=== PATIENT | female | born 1965 | race African-American/Black ===

== ENCOUNTER 2019-11-30 23:55 | Inpatient (IN) | payer MEDICAID, OTHER ==
[~2019-11-30] VITALS: Ht 162.6 cm; Wt 84.3 kg
[2019-12-01 00:49] LABS: Basophils # (auto) 0.1 10 ^3/uL (0-0.2); Basophils % (auto) 1.2 % (0.0-2.0); Eosinophils # (auto) 0.2 10 ^3/uL (0-0.8); Eosinophils % (auto) 3.5 % (0.0-7.0); Hematocrit 39.9 % (36.0-46.0); Hemoglobin 13.5 g/dL (12.2-16.2); Lymphocytes # (auto) 2.2 10 ^3/uL (0.4-5.4); Lymphocytes % (auto) 45.1 % (10.0-50.0); Mean Corpuscular Hemoglobin 30.1 pg (28.0-32.0); Mean Corpuscular Hgb Conc. 33.9 g/dL (32.0-36.0); Mean Corpuscular Volume 88.8 fL (80.0-100.0); Monocytes # (auto) 0.5 10 ^3/uL (0-1.3); Monocytes % (auto) 9.6 % (0.0-12.0); Neutrophils % (auto) 40.6 % (37.0-80.0); Nucleated Red Blood Cells % 0.3 %; Platelet Count (auto) 224 10^3/uL (140-450); Red Blood Cells 4.49 10^6/uL (4.0-5.20); Red Cell Distribution Width 13.2 % (11.8-14.3)
[2019-12-01 01:06] LABS: Albumin 3.7 g/dL (3.4-5.0); BUN/Creatinine Ratio 16.7; Calcium 8.2 mg/dL (8.5-10.1); Potassium 3.5 mmol/L (3.5-5.1)
[2019-12-01 01:11] LABS: Bilirubin, Total 0.2 mg/dL (0.2-1.0); Total Protein 7.8 g/dL (6.4-8.2)
[2019-12-01 01:14] LABS: Partial Thromboplastin Time 26.4 sec (23.0-31.2)
[2019-12-01 09:06] LABS: Urine Bacteria FEW /hpf (None Seen); Urine Blood Negative /uL (Negative); Urine Mucus FEW (None Seen); Urine Specific Gravity 1.013 (1.001-1.035); Urine WBC 2 /hpf (0 - 5)
[2019-12-01] MEDS ORDERED: ONDANSETRON HCL 4 MG/2 ML VIAL IV PRN (11:00)
[2019-12-01] MEDS ORDERED: NITROGLYCERIN 0.4 MG SL TAB SL PRN (11:00)
[2019-12-01] MEDS ORDERED: MORPHINE SULF INJ 2 MG/ML SYRINGE 1ML IV PRN ×2 (11:00)
[2019-12-01] MEDS ORDERED: SODIUM CHLORIDE 0.9% 1,000 ML IV ONE (12:15)
--- NOTE | 2019-12-01 12:30 | NUR ---
Telemetry admit from ER [facility] NICE admitted to Telemetry unit after SBAR received. Patient oriented to Fawn sifuentes RN, unit, room, bed, and unit policies regarding patient care and visiting hours. Patient now on continuous telemetry monitoring, tele box #74 and telemetry reading on arrival to unit is SR 60's. Patient weighed by bed scale. Instructed patient on POC, fall precautions and to call for assistance as needed. Patient verbalized understanding. Fall precautions in place with call light within reach.
[2019-12-01] MEDS ORDERED: IBUP800T24 PO (13:10)
[2019-12-01] MEDS ORDERED: ALPR0.5T PO (13:10)
[2019-12-01] MEDS ORDERED: MELO1TAB73 PO (13:14)
[2019-12-01] MEDS ORDERED: ALPR1TAB2 PO (13:14)
--- NOTE | 2019-12-01 13:36 | NUR ---
Family called for an update Password obtained. Update provided.
[2019-12-01 14:15] VITALS: BP 92/51
[2019-12-01 17:00] VITALS: BP 93/64
--- NOTE | 2019-12-01 17:25 | NUR ---
Patient resting in bed with eyes closed respirations even and unlabored, no distress noted. Fall precautions in place with call light within reach.
--- NOTE | 2019-12-01 17:27 | NUR ---
Family called for an update Password obtained. Update provided.
--- NOTE | 2019-12-01 18:25 | NUR ---
Closing note Patient resting in bed with eyes closed, respirations even and unlabored, no distress noted. Fall precautions in place with call light within reach.
--- NOTE | 2019-12-01 19:01 | NUR ---
Care endorsed to ALICIA Flood.
--- NOTE | 2019-12-01 20:10 | NUR ---
open note assumed care of pt, upon entering room pt awake and alert. pt on room air no distress noted or expressed. pt denies any pain. pt oriented to this nurse and updated on plan of care. pt bed locked, low and 2x rails up. this nurse to round q1hr and prn. pt encouraged to call as needed. call light in reach.
[2019-12-01] MEDS: ENOXAPARIN SOD 80 MG/0.8ML SYRINGE SC SCH (21:44)
[2019-12-01 22:00] VITALS: BP 100/66
[2019-12-02 05:06] VITALS: BP 90/51
--- NOTE | 2019-12-02 07:46 | NUR ---
Morning note Patient resting in bed with even and unlabored respirations, no distress noted. Instructed patient on POC, fall precautions and to call for assistance as needed. Patient verbalized understanding. Fall precautions in place with call light within reach.
--- NOTE | 2019-12-02 07:51 | NUR ---
Patient has c/o back pain d/t hospital bed PRN pain medication offered. Patient refused. Patient accepted heating pack to apply to the back.
[2019-12-02] MEDS: ENOXAPARIN SOD 80 MG/0.8ML SYRINGE SC SCH ×2 (08:56→21:56)
--- NOTE | 2019-12-02 09:02 | NUR ---
was at bedside - Dr. Rueda This RN was at bedside. POC discussed with this RN and the patient. Patient verbalized understanding to POC.
[2019-12-02 09:17] VITALS: BP 91/62
[2019-12-02] MEDS: ASPirin 81 mg TAB PO SCH (09:48)
--- NOTE | 2019-12-02 09:50 | NUR ---
Patient ambulated to restroom Patient denies SOB or CP. Respirations even and unlabored, no distress noted. Patient returned to bed with no complications noted.
--- NOTE | 2019-12-02 10:00 | NUR ---
Consents signed and placed in hard chart per MD order.
[2019-12-02] MEDS: SODIUM CHLORIDE 0.9% 1,000 ML IV SCH ×2 (10:33→23:31)
[2019-12-02 12:30] VITALS: BP 85/53
--- NOTE | 2019-12-02 13:48 | NUR ---
Patient resting in bed with eyes closed Respirations even and unlabored, no distress noted. Call light within reach.
[2019-12-02 16:51] VITALS: BP 103/74
--- NOTE | 2019-12-02 16:51 | NUR ---
Patient sitting at side of bed Respirations even and unlabored respirations, no distress noted. Call light within reach.
--- NOTE | 2019-12-02 18:42 | NUR ---
Closing note Patient resting in bed with eyes closed, respirations even and unlabored, no distress noted. Fall precautions in place with call light within reach.
--- NOTE | 2019-12-02 19:05 | NUR ---
IV started 22g IV started to the LFA with aseptic technique. IV secured and IV education provided. Patient verbalized understanding. Bed returned to lowest locked position with call light within reach.
--- NOTE | 2019-12-02 19:20 | NUR ---
Care endorsed to ALICIA Flood.
--- NOTE | 2019-12-02 20:06 | NUR ---
open note assumed care of pt. upon entering room pt awake and alert. pt on room air with no s/s distress noted or expressed. pt denies any pain. pt updated on plan of care. pt bed locked, low and 2x rails up. call light in reach, this nurse to round q1hr and prn. pt encouraged to call as needed.
[2019-12-02 21:47] VITALS: BP 107/68
[2019-12-02] MEDS ORDERED: ATORVASTATIN 20 MG TAB PO SCH (22:00)
[2019-12-03 05:00] VITALS: BP 106/68
[2019-12-03 09:00] VITALS: BP 108/78
[2019-12-03] MEDS: ASPirin 81 mg TAB PO SCH (09:10)
[2019-12-03] MEDS: ENOXAPARIN SOD 80 MG/0.8ML SYRINGE SC SCH (09:10)
--- NOTE | 2019-12-03 09:50 | NUR ---
Off unit Patient taken to veterinary laboratory technician for scheduled procedure. No distress noted upon departure.
[2019-12-03] MEDS ORDERED: LIDOCAINE 2%HCL (LOCAL ANESTH.) INJ 20ML MDV ONE (10:29)
[2019-12-03] MEDS ORDERED: IODIXANOL 320MG/ML 100ML BTL IV ONE (10:29)
[2019-12-03] MEDS ORDERED: HEPARIN DRIP/D5W 100UNITS/ML 0 ML IV ONE (10:29)
[2019-12-03] MEDS ORDERED: ANGIOMAX 250 MG VIAL IV ONE (10:36)
[2019-12-03] MEDS ORDERED: fentaNYL CITRATE 100 MCG/2 ML VL ONE (10:36)
[2019-12-03] MEDS ORDERED: HEPARIN SODIUM (PORCINE) 5000 UNITS/ML 1ML VIAL ONE (10:36)
[2019-12-03] MEDS ORDERED: VERAPAMIL 2.5MG/ML INJ 2ML VIAL IV ONE (10:36)
[2019-12-03] MEDS ORDERED: MIDAZOLAM HCL 1MG/1ML-2 ML VIAL ONE (10:37)
[2019-12-03] MEDS ORDERED: SODIUM CHL 0.9% 0 ML ONE (10:37)
--- NOTE | 2019-12-03 11:59 | NUR ---
Back on unit S/p LHC. Noted vasc band to right radial. No bleeding, hematoma, noted. Will deflate band starting at 12:30. Bed is low, locked with 2x side rails up. Call light is within reach.
[2019-12-03] MEDS: SODIUM CHLORIDE 0.9% 1,000 ML IV SCH (12:10)
--- NOTE | 2019-12-03 12:15 | NUR ---
Dr. Segundo at bedside Discussing POC with patient. Patient to be discharged today. Will carry out orders.
--- NOTE | 2019-12-03 12:33 | NUR ---
R radial No hematoma, swelling, numbness noted or stated. Dressing is C/D/I. Will continue to monitor.
[2019-12-03 13:00] VITALS: BP 92/57
[2019-12-03 16:56] VITALS: BP 102/70
[2019-12-03 17:04] VITALS: BP 102/70
--- NOTE | 2019-12-03 17:33 | NUR ---
Discharge instructions given as ordered. Encourage to follow up with PMD as instructed. Provided information for both PCP and fingernail sculptor (Dr. Rueda). Encouraged patient to schedule follow up appointment. All questions and concerns addressed. Patient verbalized understanding. Gave detailed instructions/ educational reading for after care of right radial site. Patient verbalized understanding. Provided patient with hard copy of prescription. Medication reconciliation form completed and copy given to patient. IV removed with catheter intact, pressure dressing applied. Telemetry unit returned to ICU. Patient ambulated off unit with all personal belongings, accompanied by staff. No distress noted at time of departure.
== END 2019-12-03 17:36 | disposition home or self-care (01) | DRG 190 ==
LOC: ER 23:55 → TELE 23:56 → TELE-WESTW 12-01 12:31
PROVIDERS: ADMIT Internal Medicine; ATTEND Internal Medicine
PROC: 4A023N7 Measurement of Cardiac Sampling and Pressure, Left Heart, Percutaneous Approach (ICD-10-PCS; principal; 2019-12-03)
PROC: B215YZZ Fluoroscopy of Left Heart using Other Contrast (ICD-10-PCS; 2019-12-03)
PROC: B211YZZ Fluoroscopy of Multiple Coronary Arteries using Other Contrast (ICD-10-PCS; 2019-12-03)
DX: I21.4 Non-ST elevation (NSTEMI) myocardial infarction (principal); I20.0 Unstable angina; I95.9 Hypotension, unspecified; E66.9 Obesity, unspecified; Z68.31 Body mass index [BMI] 31.0-31.9, adult; Z83.3 Family history of diabetes mellitus; Z80.1 Family history of malignant neoplasm of trachea, bronchus and lung; Z80.41 Family history of malignant neoplasm of ovary; Z72.0 Tobacco use; Z81.8 Family history of other mental and behavioral disorders; Z82.0 Family history of epilepsy and other diseases of the nervous system; Z82.49 Family history of ischemic heart disease and other diseases of the circulatory system; Z82.5 Family history of asthma and other chronic lower respiratory diseases; Z82.62 Family history of osteoporosis; Z86.73 Personal history of transient ischemic attack (TIA), and cerebral infarction without residual deficits; Z82.3 Family history of stroke; Z80.3 Family history of malignant neoplasm of breast
CPT/HCPCS: 36415; 71045; 80053; 81001; 84484; 85025; 85610; 85730; 86850; 86900; 86901; 93005; 93306; 93458; 99152; G0378; J2250; Q9967

== ENCOUNTER 2020-07-31 17:17 | Emergency (ER) | payer MEDICAID ==
[~2020-07-31] VITALS: Ht 162.6 cm; Wt 81.2 kg
[~2020-07-31 17:17] MED LIST: ALPR1TAB2 PO; IBUP800T27 PO; MELO1TAB73 PO
[2020-07-31 17:19] VITALS: BP 130/90
== END 2020-07-31 20:28 | disposition home or self-care (01) ==
LOC: ER 17:17
DX: M47.817 Spondylosis without myelopathy or radiculopathy, lumbosacral region (principal); M51.27 Other intervertebral disc displacement, lumbosacral region; M54.42 Lumbago with sciatica, left side; F17.210 Nicotine dependence, cigarettes, uncomplicated
CPT/HCPCS: 72131